=== PATIENT | male | born 1960 | race Caucasian/White ===

== ENCOUNTER 2022-07-17 06:50 | Day surgery (SDC) | payer OTHER ==
[~2022-07-17] VITALS: Ht 182.9 cm; Wt 98.1 kg
[2022-07-17] VITALS (7 sets, daily range): BP systolic 105–161; BP diastolic 64–97
[2022-07-17 07:58] LABS: HEMATOCRIT 37.3 % (39.0-50.0); HEMOGLOBIN 12.9 g/dl (14.0-18.0); IMMATURE GRANULOCYTES 0.4 % (0.0-5.0); MEAN CELL VOLUME 91.2 fL CALC (80.0-100.0); MEAN CORPUSCULAR HGB 31.5 pG CALC (26.0-32.0); MEAN CORPUSCULAR HGB CONC 34.6 g/dL CAL (32.0-36.0); NEUT# 3.7 thou/uL (1.82-7.42); RED BLOOD COUNT 4.09 mill/uL (4.70-6.10)
[2022-07-17 08:27] LABS: ALBUMIN 4.7 g/dL (3.2-5.0); ALKALINE PHOSPHATASE 64 u/l (38-126); ANION GAP 14 (6-22 (CALC)); BILIRUBIN, TOTAL 0.7 mg/dL (0.0-1.4); BUN 10 mg/dL (9-20); BUN/CREATININE RATIO 19 (12-20 (CALC)); CARBON DIOXIDE 29 mmol/l (22-30); CHLORIDE 104 mmol/l (95-108); CREATININE 0.5 mg/dL (0.7-1.3); GFR FOR AFR.AMER. > 60 ML/MIN (>=60 (CALC)); GFR OTHER RACES > 60 ML/MIN (>=60 (CALC)); MAGNESIUM 1.5 mg/dL (1.6-2.3); POTASSIUM 3.9 mmol/l (3.5-5.1); SGOT/AST 61 u/l (17-59); SODIUM 143 mmol/l (137-146); TOTAL PROTEIN 7.2 g/dL (6.3-8.2)
[2022-07-17] MEDS ORDERED: NALTREXONE50 MG PO (13:39)
[2022-07-17] MEDS ORDERED: KLONOPIN2 MG PO (13:39)
[2022-07-17] MEDS ORDERED: CLONIDINE0.1 MG PO (13:40)
[2022-07-18 03:30] VITALS: BP 130/99
== END 2022-07-18 16:00 | disposition home or self-care (01) | DRG 897 ==
LOC: ANR 06:50 → MS2 06:52 → ANR 07:00 → MS2 19:40 → ANR 07-18 16:00
PROVIDERS: ATTEND Anesthesiology Critical Care Medicine
DX: F11.20 Opioid dependence, uncomplicated (principal)
CPT/HCPCS: J0131; J2060; J2354